=== PATIENT | female | born 1945 | race Caucasian/White ===

== ENCOUNTER 2020-05-01 00:37 | Outpatient (CLI) | payer MEDICARE, BC, SELFPAY ==
[2020-05-01 13:54] LABS: ALT 21 U/L (14-59); AST 13 U/L (15-37); Albumin 3.7 g/dL (3.4-5.0); Alkaline Phosphatase 43 U/L (46-116); Anion Gap 1.9 mmol/L (3-11); Bilirubin, Total 0.4 mg/dL (0.2-1.0); CO2 31.1 mmol/L (21.0-32.0); CREATININE 1.16 mg/dL (0.55-1.02); Calcium 8.7 mg/dL (8.5-10.1); Chloride 109 mmol/L (98-107); Estimated GFR 45.54 (mL/min/1.73m2); Glucose 85 mg/dL (74-106); Potassium 4.7 mmol/L (3.5-5.1); Sodium 142 mmol/L (136-145); TSH 0.44 uIU/mL (0.36-3.74); Total Protein 6.6 g/dL (6.4-8.2); Vitamin B12 551 pg/mL (193-986)
[2020-05-01 14:17] LABS: BUN 24 mg/dL (7-18)
[2020-05-04 05:31] LABS: Vitamin D 25 Total 87.1 ng/ml (30-100)
== END 2020-05-01 00:57 ==
PROVIDERS: PCP Family Medicine; Visit Provider Family Medicine
DX: R53.83 Other fatigue (principal); M81.0 Age-related osteoporosis without current pathological fracture
CPT/HCPCS: 36415; 80053; 82306; 82607; 84443

== ENCOUNTER → 2020-06-16 08:54 | Outpatient (BNVA) | payer MEDICARE, BC, SELFPAY | PROVIDERS: PCP Family Medicine; Referring Provider Family Medicine; Visit Provider Nurse Practitioner Adult Health | DX: R41.89 Other symptoms and signs involving cognitive functions and awareness (principal) | CPT/HCPCS: 99204 ==

== ENCOUNTER → 2020-07-14 09:24 | Outpatient (BNVA) | payer MEDICARE, BC, SELFPAY | PROVIDERS: PCP Family Medicine; Referring Provider Family Medicine; Visit Provider Nurse Practitioner Adult Health | DX: G31.84 Mild cognitive impairment of uncertain or unknown etiology (principal) | CPT/HCPCS: 99213 ==

== ENCOUNTER 2020-07-22 00:51 | Outpatient (CLI) | payer MEDICARE, BC, SELFPAY ==
--- NOTE | 2020-07-22 10:45 | DI.MRI_ITS ---
EXAM: MR BRAIN WO CLINICAL HISTORY: memory changes,cognitive impairment,r41.89 TECHNIQUE: Multiplanar multisequence MRI of the brain was performed. COMPARISON: No exams were available for comparison FINDINGS: The examination is limited due to patient motion artifact. VENTRICLES AND EXTRA AXIAL SPACES: Normal in size and morphology for the patient's age. There is gene ralized cerebral atrophy. This appears consistent with the patient's age. MIDLINE SHIFT: None. CEREBRAL PARENCHYMA: No focus of restricted diffusion to suggest acute infarct. No space-occupying le kelly identified. There are few scattered hyperintense foci seen on the T2 weighted images in the whit e matter most suggestive of chronic microvascular ischemic change. HEMORRHAGE: None. BRAINSTEM/CEREBELLUM: Normal. CALVARIUM: Normal. VISUALIZED PARANASAL SINUSES/MASTOIDS:Clear. [facility] [place]: Normal flow void. PITUITARY GLAND: Unremarkable. OTHER FINDINGS: None. IMPRESSION: Age-related cerebral atrophy and chronic microvascular ischemic change. DATA REPOSITORY:
== END 2020-07-22 01:11 ==
PROVIDERS: PCP Family Medicine; Visit Provider Nurse Practitioner Adult Health
DX: G31.89 Other specified degenerative diseases of nervous system (principal); R41.89 Other symptoms and signs involving cognitive functions and awareness
CPT/HCPCS: 70551

== ENCOUNTER → 2020-08-19 10:01 | Outpatient (BNVA) | payer MEDICARE, BC, SELFPAY | PROVIDERS: PCP Family Medicine; Visit Provider Nurse Practitioner Adult Health | DX: R41.89 Other symptoms and signs involving cognitive functions and awareness (principal) | CPT/HCPCS: 99213 ==

== ENCOUNTER → 2020-12-16 08:46 | Outpatient (BNVA) | payer MEDICARE, BC, SELFPAY | PROVIDERS: PCP Family Medicine; Referring Provider Family Medicine; Visit Provider Nurse Practitioner Adult Health | DX: R41.89 Other symptoms and signs involving cognitive functions and awareness (principal) | CPT/HCPCS: 99213 ==

== ENCOUNTER → 2021-01-27 08:28 | Outpatient (BNVA) | payer MEDICARE, BC, SELFPAY | PROVIDERS: PCP Family Medicine; Referring Provider Family Medicine; Visit Provider Nurse Practitioner Adult Health | DX: R41.89 Other symptoms and signs involving cognitive functions and awareness (principal); Z71.89 Other specified counseling | CPT/HCPCS: 99212; 99213 ==

== ENCOUNTER → 2021-06-08 08:31 | Outpatient (BNVA) | payer MEDICARE, BC, SELFPAY | PROVIDERS: PCP Family Medicine; Referring Provider Family Medicine; Visit Provider Nurse Practitioner Adult Health | DX: G30.9 Alzheimer's disease, unspecified (principal); F02.80 Dementia in other diseases classified elsewhere, unspecified severity, without behavioral disturbance, psychotic disturbance, mood disturbance, and anxiety | CPT/HCPCS: 99213 ==

== ENCOUNTER → 2021-10-06 09:32 | Outpatient (BNVA) | payer MEDICARE, SELFPAY | PROVIDERS: PCP Family Medicine; Visit Provider Nurse Practitioner Adult Health | DX: G30.9 Alzheimer's disease, unspecified (principal); F02.80 Dementia in other diseases classified elsewhere, unspecified severity, without behavioral disturbance, psychotic disturbance, mood disturbance, and anxiety | CPT/HCPCS: 99213 ==

== ENCOUNTER 2021-11-09 03:05 | Outpatient (CLI) | payer MEDICARE, SELFPAY ==
--- NOTE | 2021-11-09 08:30 | DI.MAMMO_ITS ---
Exam(s) MAMMO SCREENING EXAM: MAMMO SCREENING CLINICAL HISTORY: screening. TECHNIQUE: Bilateral full field digital CC and MLO mammographic images were obtained with 3D tomosyn thesis and utilizing computer aided detection (CAD). COMPARISON: Prior mammograms were reviewed, the most recent being January 2018. FINDINGS: There has been no significant change in the appearance and distribution of the fibroglandular tissue which is again noted be moderately dense, this somewhat decreasing the sensitivity of the mammogram f or finding in underlying lesions. Scattered benign-appearing micro and macro calcifications are again noted in both breasts. There are no new spiculated masses nor malignant appearing microcalcification groups. There is no significant architectural distortion nor skin thickening-retraction. IMPRESSION: Moderately dense fibroglandular tissue. No obvious radiographic evidence of malignancy nor significa nt change compared to prior studies listed above. BI-RADS Category 1 - Negative Breast Density - Category C - Heterogeneously dense Breast density Category C or D implies that the patient has dense breast tissue. Dense breast tissue can make it harder to find cancer on a mammogram. Dense breast tissue is also associated with an incr eased risk of breast cancer. This information about the result of the mammogram report was provided to the patient to raise their awareness. Use this report when you speak with the patient about their risks for breast cancer, which includes their family history. At that time, you may recommend additional screening tests (Ultrasoun d or MRI) as these tests may add significant information. A negative radiographic report should not delay biopsy if a dominant or clinically suspicious mass is present. Up to ten percent of cancers are not identified on mammography. A negative report may reinforce clinical impression. Adenosis and dense breasts may obscure an underlying neoplasm. False positive reports average 6 to 10%. Patient will receive a letter notifying them of these results.
== END 2021-11-09 03:25 ==
PROVIDERS: PCP Family Medicine; Visit Provider Obstetrics & Gynecology Gynecology
DX: Z12.31 Encounter for screening mammogram for malignant neoplasm of breast (principal)
CPT/HCPCS: 77063; 77067

== ENCOUNTER → 2021-12-08 08:53 | Outpatient (BNVA) | payer MEDICARE, SELFPAY | PROVIDERS: PCP Family Medicine; Referring Provider Family Medicine; Visit Provider Nurse Practitioner Adult Health | DX: G30.9 Alzheimer's disease, unspecified (principal); F02.80 Dementia in other diseases classified elsewhere, unspecified severity, without behavioral disturbance, psychotic disturbance, mood disturbance, and anxiety | CPT/HCPCS: 99213 ==

== ENCOUNTER 2022-02-09 03:53 | Outpatient (CLI) | payer MEDICARE, SELFPAY ==
[2022-02-09 12:52] LABS: HCT 44.4 % (36.0-46.0); HGB 14.7 g/dL (11.2-15.7); MCHC 33.1 % (32.0-36.0); MCV 97 fL (80-95); Platelet Count 211 10^3/uL (130-400); RDW 11.7 % (11.7-14.6); RDW-SD 41.6 fL; WBC 5.63 10^3/uL (4.4-10.8)
[2022-02-09 14:56] LABS: ALT 23 U/L (14-59); AST 15 U/L (15-37); Albumin 3.7 g/dL (3.4-5.0); Alkaline Phosphatase 56 U/L (46-116); Anion Gap 9.9 mmol/L (3-11); BUN 16 mg/dL (7-18); Bilirubin, Total 0.4 mg/dL (0.2-1.0); CO2 29.1 mmol/L (21.0-32.0); CREATININE 1.1 mg/dL (0.55-1.02); Calcium 8.9 mg/dL (8.5-10.1); Calculated LDL 73 mg/dL (<100); Chloride 104 mmol/L (98-107); Cholesterol 147 mg/dL (<200); Estimated GFR 48.16 (mL/min/1.73m2); Glucose 93 mg/dL (74-106); HDL Cholesterol 59 mg/dL (40-60); Potassium 4.2 mmol/L (3.5-5.1); Sodium 143 mmol/L (136-145); TSH (W/Ref FT4) 0.68 uIU/mL (0.36-3.74); Total Protein 6.9 g/dL (6.4-8.2); Triglyceride 75 mg/dL (<150); Vitamin B12 578 pg/mL (193-986)
== END 2022-02-09 03:54 | disposition home or self-care (01) ==
LOC: LOS 03:53
PROVIDERS: PCP Nurse Practitioner; Visit Provider Family Medicine
DX: F03.90 Unspecified dementia, unspecified severity, without behavioral disturbance, psychotic disturbance, mood disturbance, and anxiety; I45.4 Nonspecific intraventricular block; Z13.6 Encounter for screening for cardiovascular disorders; I10 Essential (primary) hypertension
CPT/HCPCS: 36415; 80053; 80061; 85027; 82607; 84443

== ENCOUNTER → 2022-06-08 09:22 | Outpatient (BNVA) | payer MEDICARE, SELFPAY | PROVIDERS: PCP Family Medicine; Referring Provider Family Medicine; Visit Provider Nurse Practitioner Adult Health | DX: G30.9 Alzheimer's disease, unspecified (principal); F02.80 Dementia in other diseases classified elsewhere, unspecified severity, without behavioral disturbance, psychotic disturbance, mood disturbance, and anxiety | CPT/HCPCS: 99213; 99215 ==

== ENCOUNTER → 2022-12-07 09:03 | Outpatient (BNVA) | payer MEDICARE, SELFPAY | PROVIDERS: PCP Nurse Practitioner Family; Referring Provider Nurse Practitioner Family; Visit Provider Nurse Practitioner Adult Health | DX: G30.9 Alzheimer's disease, unspecified (principal); F02.80 Dementia in other diseases classified elsewhere, unspecified severity, without behavioral disturbance, psychotic disturbance, mood disturbance, and anxiety; F32.A Depression, unspecified | CPT/HCPCS: 99213 ==

== ENCOUNTER 2023-02-01 04:42 | Outpatient (CLI) | payer MEDICARE, SELFPAY ==
[2023-02-01 12:33] LABS: HCT 44.5 % (36.0-46.0); HGB 14.3 g/dL (11.2-15.7); MCH 32.1 pg (27.0-33.0); MCHC 32.1 % (32.0-36.0); MCV 100 fL (80-95); MPV 11.8 fL (8.0-11.0); Platelet Count 198 10^3/uL (130-400); RBC 4.46 10^6/uL (3.93-5.22); RDW 11.8 % (11.7-14.6); RDW-SD 43.3 fL; WBC 4.93 10^3/uL (4.4-10.8)
[2023-02-01 12:44] LABS: ALT 23 U/L (14-59); AST 17 U/L (15-37); Albumin 3.8 g/dL (3.4-5.0); Alkaline Phosphatase 56 U/L (46-116); BUN 26 mg/dL (7-18); Bilirubin, Total 0.4 mg/dL (0.2-1.0); CREATININE 1.2 mg/dL (0.55-1.02); Calcium 8.7 mg/dL (8.5-10.1); Calculated LDL 78 mg/dL (<100); Chloride 107 mmol/L (98-107); Cholesterol 152 mg/dL (<200); Estimated GFR 46.33 (mL/min/1.73m2); Glucose 104 mg/dL (74-106); HDL Cholesterol 67 mg/dL (40-60); Potassium 4.8 mmol/L (3.5-5.1); Sodium 144 mmol/L (136-145); Total Protein 7.1 g/dL (6.4-8.2); Triglyceride 36 mg/dL (<150)
== END 2023-02-01 04:43 | disposition home or self-care (01) ==
LOC: LOS 04:42
PROVIDERS: PCP Nurse Practitioner Family; Visit Provider Nurse Practitioner Family
DX: F32.A Depression, unspecified; G30.9 Alzheimer's disease, unspecified; I45.4 Nonspecific intraventricular block; M81.0 Age-related osteoporosis without current pathological fracture; N18.30 Chronic kidney disease, stage 3 unspecified
CPT/HCPCS: 36415; 80053; 80061; 85027

== ENCOUNTER → 2023-06-07 08:30 | Outpatient (BNVA) | payer MEDICARE, SELFPAY | PROVIDERS: PCP Nurse Practitioner Family; Referring Provider Nurse Practitioner Family; Visit Provider Nurse Practitioner Adult Health | DX: G30.9 Alzheimer's disease, unspecified (principal); F02.80 Dementia in other diseases classified elsewhere, unspecified severity, without behavioral disturbance, psychotic disturbance, mood disturbance, and anxiety | CPT/HCPCS: 99213 ==

== ENCOUNTER 2023-08-17 17:51 | Outpatient (REF) | payer MEDICARE, SELFPAY ==
--- NOTE | 2023-08-17 15:45 | SKI_PTH ---
PATIENT: Anu Guerrero LOC: [facility]#:[id number] AGE/SX: 78/F ROOM: RE08/17/[address]: Michelle Andrews NP : 1945 BED: DIS: 08/17/2023 SPEC #: [id number] RECD: 08/18/23 12:31 STATUS: MICHELLE REMiquel #: [id number] ANGEL LUIS: 08/17/23 15:[address]: Michelle Andrews DEPT: Surgical Specimen RECD BY: Linda Mart Tissues: 1 - SKIN BIOPSY(SHAVE/PUNCH) Procedures: SKIN LEVEL 4 SPECIAL STAIN 1 Comments: [id number]
== END 2023-08-17 17:52 | disposition home or self-care (01) ==
LOC: LBN 17:51
PROVIDERS: PCP Nurse Practitioner Family; Visit Provider Nurse Practitioner Family
DX: L57.0 Actinic keratosis (principal); L90.5 Scar conditions and fibrosis of skin; I87.2 Venous insufficiency (chronic) (peripheral)
CPT/HCPCS: 88305; 88312

== ENCOUNTER → 2023-12-06 09:54 | Outpatient (BNVA) | payer MEDICARE, SELFPAY | PROVIDERS: PCP Nurse Practitioner Family; Referring Provider Nurse Practitioner Family; Visit Provider Nurse Practitioner Adult Health | DX: G30.9 Alzheimer's disease, unspecified (principal); F02.80 Dementia in other diseases classified elsewhere, unspecified severity, without behavioral disturbance, psychotic disturbance, mood disturbance, and anxiety | CPT/HCPCS: 99215 ==

== ENCOUNTER 2024-01-30 13:13 | Outpatient (REF) | payer MEDICARE, SELFPAY ==
[2024-01-30 21:42] LABS: Anion Gap 5.2 mmol/L (3-11); BUN 24 mg/dL (7-18); CO2 28.8 mmol/L (21.0-32.0); Calcium 8.9 mg/dL (8.5-10.1); Chloride 110 mmol/L (98-107); Estimated GFR 57.31 (mL/min/1.73m2); Glucose 95 mg/dL (74-106); Potassium 4.5 mmol/L (3.5-5.1); Sodium 144 mmol/L (136-145)
== END 2024-01-30 13:14 | disposition home or self-care (01) ==
LOC: LBN 13:13
PROVIDERS: PCP Nurse Practitioner Family; Visit Provider Nurse Practitioner Family
DX: N18.30 Chronic kidney disease, stage 3 unspecified (principal); G30.9 Alzheimer's disease, unspecified; F02.80 Dementia in other diseases classified elsewhere, unspecified severity, without behavioral disturbance, psychotic disturbance, mood disturbance, and anxiety
CPT/HCPCS: 80048

== ENCOUNTER → 2024-06-05 10:53 | Outpatient (BNVA) | payer MEDICARE, SELFPAY | PROVIDERS: PCP Nurse Practitioner Family; Visit Provider Nurse Practitioner Adult Health | DX: G30.9 Alzheimer's disease, unspecified (principal); F02.80 Dementia in other diseases classified elsewhere, unspecified severity, without behavioral disturbance, psychotic disturbance, mood disturbance, and anxiety | CPT/HCPCS: 99214 ==

== ENCOUNTER → 2024-12-04 10:47 | Outpatient (BNVA) | payer MEDICARE, SELFPAY | PROVIDERS: PCP Nurse Practitioner Family; Referring Provider Nurse Practitioner Family; Visit Provider Nurse Practitioner Adult Health | DX: G30.9 Alzheimer's disease, unspecified (principal); F02.80 Dementia in other diseases classified elsewhere, unspecified severity, without behavioral disturbance, psychotic disturbance, mood disturbance, and anxiety | CPT/HCPCS: 99214 ==

== ENCOUNTER 2025-01-30 14:50 | Outpatient (REF) | payer MEDICARE, SELFPAY ==
[2025-01-30 21:31] LABS: Anion Gap 5.7 mmol/L (3-11); BUN 21 mg/dL (7-18); CO2 34.3 mmol/L (21.0-32.0); Calcium 9.5 mg/dL (8.5-10.1); Chloride 106 mmol/L (98-107); Estimated GFR 56.95 (mL/min/1.73m2); Glucose 101 mg/dL (74-106); Potassium 4.6 mmol/L (3.5-5.1); Sodium 146 mmol/L (136-145)
== END 2025-01-30 14:51 | disposition home or self-care (01) ==
LOC: LBN 14:50
PROVIDERS: PCP Nurse Practitioner Family; Visit Provider Nurse Practitioner Family
DX: Z00.00 Encounter for general adult medical examination without abnormal findings (principal); N18.30 Chronic kidney disease, stage 3 unspecified; F32.A Depression, unspecified; M81.0 Age-related osteoporosis without current pathological fracture; G30.9 Alzheimer's disease, unspecified; F02.80 Dementia in other diseases classified elsewhere, unspecified severity, without behavioral disturbance, psychotic disturbance, mood disturbance, and anxiety
CPT/HCPCS: 80048

== ENCOUNTER 2025-03-25 12:19 | Emergency (ER) | payer MEDICARE, SELFPAY ==
[2025-03-25 12:32] VITALS: BP 149/83; PULSE 64; RESP 20; TEMP 37.4; O2SAT 95
[2025-03-25 13:10] LABS: Glucose Negative (Negative)
[2025-03-25 13:32] LABS: RBC Negative HPF (0-2)
--- NOTE | 2025-03-25 13:47 | W.ED.GENAD ---
Discharge Plan Disposition Patient Disposition: Home Condition: Stable Discharge Details Clinical Impression: UTI (urinary tract infection) Primary Care Provider: Michelle Andrews ED Provider: Monika Larson Home Meds and New Rx's Prescriptions: New cephalexin 500 mg tablet 500 mg PO BID 7 Days Qty: 14 0RF Rx Instructions: Please take 1 tablet by mouth twice daily for the next 7 days Continued memantine 10 mg tablet 10 mg PO BID Qty: 180 3RF multivitamin 1 EACH tablet 0.5 tab PO BID cholecalciferol (vitamin D3) 1,000 UNIT capsule 1,000 unit PO DAILY [id number] [Osteo Bi-Flex (5-Loxin)] 1 EACH tablet 1 ea PO BID calcium carbonate-vitamin D3 [Os-Rodney 500 + D3] 1 EACH tablet 1 ea PO BID Qty: 180 donepezil 10 mg tablet 10 mg PO QHS Qty: 90 3RF Discharge Instructions Instructions: Urinary Tract Infection, Adult ED Additional Instructions: Please take the antibiotic as directed twice daily for the next 7 days with yogurt or probiotic daily. She may take a good yogurt once a day. The urinalysis shows a little bit of white blood cells possibly an early urinary tract infection. Follow up with primary care provider in 7 days. Return to ED sooner if any worsening abdominal pain, back pain, fever, nausea vomiting diarrhea worsening confusion or concerns. Referrals: Michelle Andrews NP [Primary Care Provider, Medicine] - 1 week Clinical Impression: UTI (urinary tract infection) Discharge Data Discharge Date/Time-TO BE ENTERED AT DEPARTURE: 03/25/25 14:40 HPI General Mode of arrival: ambulatory. Date/Time Provider Initiated Documentation: 03/25/25 12:39. Limitations to Documentation: no limitations. Information obtained by: patient, RN notes reviewed and old records reviewed. HPI Narrative: 80-year-old female presents to the ER with a chief complaint of increased urinary frequency over the last week, intermittent lower abdominal pain and lower back pain per her 's report. She does have a history of Alzheimer's dementia and the has been states that since this was going on for approximately a week she decided to bring her in. Denies any nausea vomiting diarrhea, no fever no bloody stool or any other associated symptoms. No recent falls. Does have a surgical history of 4 years ago, fallopian tube ligation and cholecystectomy. Other past medical history include bundle branch block and cystocele with uterine prolapse which is since resolved. Patient and family deny any vaginal discharge or bleeding or any other concerns. Related Data Home Medications ?Medication ?Instructions ?Recorded ?Confirmed cholecalciferol (vitamin D3) 25 1,000 unit PO DAILY 10/31/13 03/25/25 mcg (1,000 unit) capsule glucosamine [id number] 1 ea PO BID 10/31/13 03/25/25 stacy 1,500 mg-400 unit-100 mg tablet (Osteo Bi-Flex (5-Loxin)) multivitamin 0.5 tab PO BID 10/31/13 03/25/25 calcium 500 mg (as 1 ea PO BID #180 tab-caps 02/28/17 03/25/25 carbonate)-vitamin D3 5 mcg (200 unit) tablet (Os-Rodney 500 + D3) memantine 10 mg tablet 10 mg PO BID #180 tabs 06/05/24 03/25/25 donepezil 10 mg tablet 10 mg PO QHS #90 tabs 08/20/24 03/25/25 cephalexin 500 mg tablet 500 mg PO BID UTI 7 days #14 tabs 03/25/25 Previous Rx's ?Medication ?Instructions ?Recorded memantine 10 mg tablet 10 mg PO BID #180 tabs 06/05/24 donepezil 10 mg tablet 10 mg PO QHS #90 tabs 08/20/24 cephalexin 500 mg tablet 500 mg PO BID UTI 7 days #14 tabs 03/25/25 Allergies Allergy/AdvReac Type Severity Reaction Status Date / Time ammoniated mercury Allergy Unknown Other (See Uncoded 03/25/25 11:33 Comment) General Stated Complaint: Abd Prob LACEY: 3 Review of Systems All systems reviewed & are unremarkable except as noted in HPI and below Constitutional Constitutional: Reports poor appetite Gastrointestinal Gastrointestinal: Reports abdominal pain (Intermittent lower suprapubic discomfort), Denies diarrhea, Denies nausea and Denies vomiting Genitourinary Genitourinary: Reports as per HPI Exam Narrative Exam Narrative: Constitutional: Alert and oriented x2, at baseline mentation per , calm cooperative, pleasantly confused.. Appears stated age. Normal body habitus. Does not appear acutely toxic. Head: Normocephalic, no trauma. Eyes: Pupils PERRL, Red reflex noted, EOM's intact. Eyelids symmetrical without lesions, discharge, or swelling. ENT: Bilateral TM's WNL, External ear normal to inspection, no mastoid TTP, swelling, or erythema, Nasal turbinates WNL, no nasal discharge. Normal dentition, Posterior pharynx WNL, no exudate. Chest: RRR, Normal S1, S2, distal pulses intact. Resp: Lungs clear to auscultation bilaterally, no wheezes, rales, or rhonchi. Abdomen: Soft, non-distended, Normoactive bowel sounds all 4 quads. Musculoskeletal: unable to assess gait moves all 4 extremities without difficulty. Skin: No suspicious rashes or lesions. Capillary refill less than 2 sec. Neurologic: history of Alzheimer's dementia, no focal neuro motor deficits noted, a does have some short-term memory loss. Hematologic/Lymphatic: No ecchymosis, no lymphadenopathy. Course Vital Signs Vital signs: Vital Signs Temperature 37.4 C 03/25/25 12:32 Pulse 64 03/25/25 12:32 Respiratory Rate 20 03/25/25 12:32 Blood Pressure 149/83 H 03/25/25 12:32 Pulse Oximetry 95 03/25/25 12:32 Temperature 37.4 C 03/25/25 12:32 Temperature Source Oral 03/25/25 12:32 Pulse 64 03/25/25 12:32 Respiratory Rate 20 03/25/25 12:32 Blood Pressure 149/83 H 03/25/25 12:32 Blood Pressure Position Sitting 03/25/25 12:32 Pulse Oximetry 95 03/25/25 12:32 Oxygen Delivery Method Room Air 03/25/25 12:32 Oxygen Flow Rate 0 03/25/25 12:32 Pain Level 4 03/25/25 12:32 Lab/Test Results Lab/Test Results: 03/25/25 12:47 Urine - Voided Urine Culture - Pending Laboratory Tests Range/Units 03/25/25 03/25/25 12:39 12:47 Urine Color Cancelled Yellow Urine Clarity Cancelled Clear Urine pH Cancelled 6.0 Ur Specific [place] Cancelled 1.020 Urine Protein Cancelled Negative Urine Ketones Cancelled Negative Urine Blood Cancelled Negative Urine Nitrite Cancelled Negative Urine Bilirubin Cancelled Negative Urine Urobilinogen Cancelled 0.2 Ur Leukocyte Esterase Cancelled Small H Urine RBC (0-2) HPF Negative Urine WBC (0-5) HPF 3-5 Ur Epithelial Cells (Negative) HPF Few Urine Crystals (Negative) HPF Negative Urine Bacteria (Negative) HPF Rare Urine Casts (Negative) LPF Negative Urine Mucus (Negative) Negative Ur Culture Indicated? C&S Done As Ordered Urine Glucose Cancelled Negative Medical Decision Making 80-year-old female presents to the ER with a chief complaint of increased urinary frequency over the last week, intermittent lower abdominal pain and lower back pain per her 's report. She does have a history of Alzheimer's dementia and the has been states that since this was going on for approximately a week she decided to bring her in. Denies any nausea vomiting diarrhea, no fever no bloody stool or any other associated symptoms. No recent falls. Urinalysis shows small leukocytes 5 WBCs few epithelial cells rare bacteria negative mucus, culture is pending. Abdomen is soft and nontender with palpation no guarding bloating masses palpated no rebound tenderness. denies any antibiotics in the last few months. Differential diagnosis includes but not limited to UTI, gastroenteritis, appendicitis, however this is less likely due to clinical presentation and afebrile presentation. At this time it is safe for patient to be discharged with close follow-up with PCP for further outpatient evaluation. Urinalysis shows small leukocytes, 3-5 WBCs, small amount of epithelial cells urinalysis sent for culture and is pending at this time. Due to patient's symptoms we will treat with a short course of antibiotics. Cephalexin 500 mg twice daily for the next 7 days prescribed with instructions for home use and close follow-up with primary care provider discussed strict return instructions and written instructions were given no red flags. verbalized understanding. Patient discharged in hemodynamically stable condition. This text was generated using [employer] system, please disregard any oddities of phrase or misspellings. Quality:SDOH Health Related Social Needs: Health related social needs lonely/isolated PFSH All Active Problems (Updated 03/25/25 @ 14:10 by Monika Larson NP) UTI (urinary tract infection) (Acute) Depression (Chronic) Chronic kidney disease, stage 3 (Acute) 02/2022- Cr 1.1-stable Alzheimer's dementia without behavioral disturbance (Acute) Other osteoarthritis of spine (Chronic 06/24/15) Osteoporosis, unspecified (Chronic 01/11/17) Fosamax started [id number] as of 01/2022-completing 5-year course Medical History Cystocele with uterine prolapse (09/22/15) #4 Ring pessary with support until 12/2021. Pessary removed and left out at pt's request. [place] [place]UN[place]LE [place]ANCH [place] IN AN ASYMPTOMATIC PATIENT; NO TREATMENT NECESSARY Right bundle branch block Osteoporosis Uterovaginal prolapse, incomplete Stage 2. Rx with #4 Ring pessary with support 01/2017. Surgical History Status post cholecystectomy History of section H/O eye surgery RETINAL TEAR REPAIR H/O knee surgery L PATELLAR STABILIZATION, 07/20/11 DR. ITALIA BENÍTEZ (LEFT PATELLA) Ligation of fallopian tube section PROCEDURES Cholecystectomy (~2007) Extraction of cataract O.D 09/09; O.S 02/07-- Appendectomy Family History Mother , 78 CHF (congestive heart failure) Father , 83 Alzheimer disease Brother , 65 Alzheimer disease Maternal Grandfather , 86 Diabetes Paternal Grandfather No problems noted. Maternal Grandmother No problems noted. Paternal Grandmother , 80 No problems noted. Son No problems noted. Daughter No problems noted. Sister Alzheimer disease Social History Smoking/Tobacco Use Status: Never Second Hand Exposure: No Smoking risk assessment performed?: Yes Alcohol Intake: never Drug use: Never Substance use type: does not use Counseling given: No Caregiver/Support person: No Household members: spouse and other Details: [facility] 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 Pets and animals: No Sexually active: No Do you think of yourself as: straight/heterosexual Current gender identity: female What is your relationship status?: How often do you talk on the phone with friends or family?: three or more times per week How often do you get together with friends or relatives?: three or more times per week How often do you attend zoroastrian or confucianism services?: 4 or more times per year Do you belong to any clubs or organized social groups?: no Panel score (0-1 are the most socially isolated patients): 3 What type of physical activity do you participate in: walking Duration: 15-30 minutes/day Frequency: 3-4 times per week Zeina/Sikhism: Non yazdanism Special zeina needs: No Seatbelt use: always Helmet use: No Drive 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
[2025-03-25] MEDS: Cephalexin 500 MG CAP PO (14:19)
[2025-03-25 14:31] VITALS: BP 149/83; PULSE 64; RESP 20; TEMP 37.4; O2SAT 95
== END 2025-03-25 14:40 | disposition home or self-care (01) ==
PROVIDERS: Emergency Medicine; Emergency Provider Registered Nurse Emergency; PCP Nurse Practitioner Family
DX: N39.0 Urinary tract infection, site not specified (principal)
CPT/HCPCS: 99283 ×2; 81003; 81015; 87086

== ENCOUNTER → 2025-06-04 10:53 | Outpatient (BNVA) | payer MEDICARE, SELFPAY | PROVIDERS: PCP Nurse Practitioner Family; Referring Provider Nurse Practitioner Family; Visit Provider Nurse Practitioner Adult Health | DX: G30.9 Alzheimer's disease, unspecified (principal); F02.80 Dementia in other diseases classified elsewhere, unspecified severity, without behavioral disturbance, psychotic disturbance, mood disturbance, and anxiety; R25.9 Unspecified abnormal involuntary movements | CPT/HCPCS: 99214 ==

== ENCOUNTER 2025-06-06 04:53 | Outpatient (CLI) | payer MEDICARE, SELFPAY ==
--- NOTE | 2025-06-12 21:18 | PDOC.EEG_ITS ---
Neurology EEG EEG: [facility] Department of Neurology EEG REPORT Date of Recordin06/06/25 Interpreting Physician: Dr. Paty Wilson PCP/Referring Provider: Yomaira Oro NP Reason for study: Anu Guerrero is an 80 year-old with dementia and recent repetititve right arm movements. Current Medications: Home Medications Medication Instructions Recorded Confirmed Type cholecalciferol (vitamin D3) 25 1,000 unit PO DAILY 10/31/13 06/04/25 Hi story mcg (1,000 unit) capsule glucosamine [id number] 1 ea PO BID 10/31/13 06/04/25 History stacy 1,500 mg-400 unit-100 mg tablet (Osteo Bi-Flex (5-Loxin)) multivitamin 0.5 tab PO BID 10/31/13 06/04/25 History calcium 500 mg (as 1 ea PO BID #180 tab-caps 02/28/1706/04 History carbonate)-vitamin D3 5 mcg (200 unit) tablet (Os-Rodney 500 + D3) donepezil 10 mg tablet 10 mg PO QHS #90 tabs 06/04/25 06/04/25 Rx memantine 10 mg tablet 10 mg PO BID #180 tabs 06/04/25 06/04/25 Rx METHODS: A 21 channel digitized electroencephalogram was performed in the [facility]. The 10/20 interna tional system of electrode placement was used and bipolar and referential electrode montages were recorded. In addition to EEG the patient was monitored for EKG and lateral/vertical eye movements. Activation procedures of photic stimulation and hyperventilation were performed if applicable. Video was used during activation procedures and during events where applicable. The duration of the recording was 30 minutes. DESCRIPTION OF EEG: The patient was noted to be awake and drowsy during the recording. During maximal wakefulness no obvious posterior background rhythm was seen. With eye opening the background activity changed to a low voltage mixture of alpha, beta, and occasional theta range frequencies. Faster frequencies were present in the bilateral anterior head regions. There was a normal anterior-posterior voltage gradient. During drowsiness, there was attenuation of the posterior dominant background rhythm and vertex waves. No stage II sleep was recorded. There was rare generalized, moderate-amplitude, non-rhythmic, delta slowing. Additionally, there was more focal left hemisphere, moderate-amplitude, non- rhythmic delta slowing. Activating Procedures: Photic stimulation was performed which produced a symmetrical posterior driving response at various flash frequencies. Hyperventilation was not performed. EKG: EKG revealed normal sinus rhythm. INTERPRETATION: This EEG is abnormal due to: #1. Focal left hemisphere non-rhythmic delta slowing. #2. Absent PDR with intermittent generalized non-rhtyhmic slowing. PRIOR EEG: none CLINICAL CORRELATION: The background and generalized slowing are suggestive of a mild diffuse cerebral encephalopathy of broad differential including toxic-metabolic etiology. The focal slowing could represent an area of focal cerebral dysfunction. No definite epileptiform activity was present. If seizure remains a strong clinical suspicion, a repeat, sleep-deprived EEG is recommended. Clinical correlation is advised. Paty Wilson MD Date of service: 06/06/25
== END 2025-06-06 04:54 | disposition home or self-care (01) ==
LOC: RT 04:53
PROVIDERS: PCP Nurse Practitioner Family; Visit Provider Nurse Practitioner Adult Health
DX: R25.9 Unspecified abnormal involuntary movements (principal); R94.01 Abnormal electroencephalogram [EEG]
CPT/HCPCS: 95816

== ENCOUNTER → 2025-07-03 13:07 | Outpatient (BNVA) | payer MEDICARE, SELFPAY | PROVIDERS: PCP Nurse Practitioner Family; Referring Provider Nurse Practitioner Family; Visit Provider Psychiatry & Neurology Neurology | DX: G25.0 Essential tremor (principal); G30.9 Alzheimer's disease, unspecified; F02.80 Dementia in other diseases classified elsewhere, unspecified severity, without behavioral disturbance, psychotic disturbance, mood disturbance, and anxiety; R48.2 Apraxia | CPT/HCPCS: 99214 ==

== ENCOUNTER → 2025-08-04 12:29 | Outpatient (BNVA) | payer MEDICARE, SELFPAY | PROVIDERS: PCP Nurse Practitioner Family; Referring Provider Nurse Practitioner Family; Visit Provider Nurse Practitioner Adult Health | DX: G30.9 Alzheimer's disease, unspecified (principal); F02.80 Dementia in other diseases classified elsewhere, unspecified severity, without behavioral disturbance, psychotic disturbance, mood disturbance, and anxiety; G25.0 Essential tremor | CPT/HCPCS: 99214 ==